=== PATIENT | male | born 1940 | race Caucasian/White ===

== ENCOUNTER → 2024-05-20 | Outpatient (CLI) | payer MEDICARE, MEDICAID ==
[~2024-05-20] MED LIST: ASPIRIN81 M1 PO; MASON NATURAL2000 IU PO; METHADONE10 MG PO; TRIAMTERENE/HCT1 CAP PO
== END | disposition home or self-care (01) ==
LOC: US 05-14 12:30
PROVIDERS: ATTEND Orthopaedic Surgery
DX: M17.12 Unilateral primary osteoarthritis, left knee (principal); M16.11 Unilateral primary osteoarthritis, right hip; M17.11 Unilateral primary osteoarthritis, right knee; I70.203 Unspecified atherosclerosis of native arteries of extremities, bilateral legs; R60.0 Localized edema; M25.561 Pain in right knee